=== PATIENT | male | born 1960 | race Caucasian/White ===

== ENCOUNTER 2018-06-30 08:35 | Day surgery (SDC) | payer BC ==
[~2018-06-30 08:35] MED LIST: LIDOCAINE 2% INJ 100 MG/5 ML SDV (FOR ANES.) As Ordered; PROPOFOL 500 MG/50 ML VIAL As Ordered; fentaNYL 100 MCG/2 ML INJECTION (J3010) As Ordered
[2018-06-30] MEDS ORDERED: NS 1,000 ML IV (09:30)
[2018-06-30] MEDS ORDERED: ACETAMINOPHEN 325 MG TAB As Ordered ×2 (10:28)
== END 2018-06-30 10:39 | disposition home or self-care (01) ==
LOC: M OPP 08:35
DX: Z12.11 Encounter for screening for malignant neoplasm of colon (principal); Z86.010 Personal history of colon polyps; D12.3 Benign neoplasm of transverse colon; K64.0 First degree hemorrhoids; K57.30 Diverticulosis of large intestine without perforation or abscess without bleeding; R12 Heartburn; K22.8 Other specified diseases of esophagus; E78.5 Hyperlipidemia, unspecified; K21.9 Gastro-esophageal reflux disease without esophagitis; G47.30 Sleep apnea, unspecified; R06.83 Snoring; R51 Headache; Z79.899 Other long term (current) drug therapy; Z87.891 Personal history of nicotine dependence; Z80.0 Family history of malignant neoplasm of digestive organs; Z80.1 Family history of malignant neoplasm of trachea, bronchus and lung
CPT/HCPCS: 45380

== ENCOUNTER → 2019-11-19 | Outpatient (CLI) | payer BC ==
[~2019-11-19] MED LIST changes: +ATOR1TAB21 PO; -LIDOCAINE 2% INJ 100 MG/5 ML SDV (FOR ANES.) As Ordered; +OMEP1CAP73 PO; -PROPOFOL 500 MG/50 ML VIAL As Ordered; -fentaNYL 100 MCG/2 ML INJECTION (J3010) As Ordered
--- NOTE | 2019-11-19 21:25 | REP ---
Clinical: Lung screening. History smoking. Comparison: None Technique: Axial low-dose noncontrast images from the thoracic inlet to the upper abdomen using lung screening technique. Findings: The lung garland are well-aerated. No consolidation, significant nodule or mass lesion is appreciated. No pleural effusion/reaction or pneumothorax. Tracheobronchial tree is patent. Mediastinum demonstrates mild atherosclerotic changes of the coronary arteries without cardiomegaly. Impression: Lung-RADS category I. No nodule or suspicious abnormality. Annual surveillance recommended. Electronically Signed by Didier Philip MD 11/19/2019 09:16 P
== END ==
LOC: M RAD 16:08
PROVIDERS: ATTEND Internal Medicine
DX: Z12.2 Encounter for screening for malignant neoplasm of respiratory organs (principal)

== ENCOUNTER 2020-02-03 16:20 | Inpatient (IN) | payer BC ==
[~2020-02-03] VITALS: Ht 172.7 cm; Wt 102.5 kg
[2020-02-03 17:05] LABS: BASO % 0.4 % (0.0-1.0); EOS # 0.1 10^3/uL (0.0-0.5); EOS % 0.6 % (0.0-3.0); HEMATOCRIT 45.5 % (42.0-52.0); HEMOGLOBIN 14.4 g/dl (13.5-17.5); LYMPH # 4.1 10^3/uL (1.5-5.0); LYMPH % 40.7 % (24.0-44.0); MEAN CORPUSCULAR HGB CONC 31.6 g/dl (32.0-36.5); MEAN CORPUSCULAR VOLUME 69.5 fl (80.0-96.0); MONO # 0.6 10^3/uL (0.0-0.8); NEUTROPHILS # 5.3 10^3/uL (1.5-8.5); PLATELET COUNT, AUTOMATED 229 10^3/uL (150-450); RED BLOOD COUNT 6.55 10^6/uL (4.30-6.10); WHITE BLOOD COUNT 10.2 10^3/uL (4.0-10.0)
[2020-02-03 17:19] LABS: INR 1.13; PROTHROMBIN TIME 14.2 SECONDS (11.8-14.0)
[2020-02-03 17:20] LABS: PARTIAL THROMBOPLASTIN TIME 25.3 SECONDS (25.0-38.4)
--- NOTE | 2020-02-03 17:27 | REP ---
TWO-VIEW CHEST: REASON FOR EXAM: Chest pain. COMPARISON: No priors. FINDINGS: The superior mediastinal structures are midline. The cardiac silhouette is unremarkable in size, shape, and position. The diaphragmatic surfaces of the lungs are regular, and the costophrenic angles are clear. The pulmonary garland are clear. The imaged osseous structures are intact. IMPRESSION: There is no acute cardiopulmonary disease. Electronically Signed by Morales Floyd DO 02/04/2020 10:50 A
[2020-02-03 17:39] LABS: ALBUMIN 4.3 GM/DL (3.2-5.2); ALT/SGPT 53 U/L (12-78); BILIRUBIN,DIRECT 0.1 MG/DL (0.0-0.2); BILIRUBIN,TOTAL 0.5 MG/DL (0.2-1.0); BLOOD UREA NITROGEN 18 MG/DL (7-18); CALCIUM LEVEL 9.4 MG/DL (8.8-10.2); CARBON DIOXIDE LEVEL 30 MEQ/L (21-32); CHLORIDE LEVEL 103 MEQ/L (98-107); CK-MB VALUE MASS 2.9 NG/ML (<3.6); CPK CREATINE PHOSPHOKINASE 265 U/L (39-308); FREE T4 1.05 NG/DL (0.76-1.46); GLOMERULAR FILTRATION RATE > 60.0 (>49); GLUCOSE, FASTING 81 MG/DL (70-100); MAGNESIUM LEVEL 2.2 MG/DL (1.8-2.4); MB/CK RELATIVE INDEX 1.09 (< OR =4); NT-PRO BNP 72 PG/ML (<125); PHOSPHORUS LEVEL 3.1 MG/DL (2.5-4.9); POTASSIUM SERUM 4.2 MEQ/L (3.5-5.1); SODIUM LEVEL 138 MEQ/L (136-145); TOTAL PROTEIN 7.6 GM/DL (6.4-8.2); TROPONIN I < 0.02 NG/ML (< 0.10)
[2020-02-03] MEDS ORDERED: NS 1,000 ML IV SCH (20:15)
--- NOTE | 2020-02-03 20:15 | HPEPDOC ---
[facility] Medical History & Physical Date of Admission Feb 03, 2020 Date of Service: Feb 03, 2020 Primary Care Physician: Jr Oleary Collins Attending Physician: Zaina Mars MD History and Physical CHIEF COMPLAINT: Fluttering in chest HISTORY OF PRESENT ILLNESS: Patient is a 60-year-old male with past medical history of hyperlipidemia and acid reflux presented to [facility] emergency room from his primary care provider's office for fluttering in his chest, lightheadedness and nearly passing out earlier today. As per the patient he has been having symptoms for the past 2 days. Symptoms include lightheadedness, dizziness, weakness, blurry vision associated with episodes of fluttering in his left chest. So has increased weakness with these episodes. He says over the past 2 days the episodes have been occurring 5-10 times a day. 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 Normally he has to rest for several minutes when this happens in order for him to start seeing well again. He states these episodes come and go, our localized to the left chest, he denies any radiation of the neck or down the arm. He denies any numbness, tingling, chest pain, shortness of breath, coughing, na usea, vomiting. He has no prior cardiac history. Today he went to his primary care provider's office for routine checkup and an EKG was done. There were multiple PVCs seen on ECG. It was recommended by his primary care doctor to be sent to the ER for further evaluation. In the emergency room EKG showed to be normal sinus. Vital signs were stable outside of blood pressure which remained elevated. Blood pressure was as high as 190s over 100. He has no prior history of hypertension. This high blood pressure was taken after his encounter with myself, so perhaps white coat syndrome or increased anxiety due to having to be admitted. He was connected to the telemetry which showed occasional PVCs. Tests were negative for acute findings, troponin was negative. Case was discussed with Dr. Cruz, cardiology suggested admission for observation to closely observe and monitor for any abnormal cardia c events on telemetry for the next 72 hours, echocardiogram. The patient was admitted for presyncopal episode, palpitations. REVIEW OF SYSTEMS: CONSTITUTIONAL: Denies unexplained weight gain or weight loss, loss of appetite, fever, night sweats EYES: Denies eye drainage, eye pain, visual changes, dry/irritated eye EARS, NOSE, MOUTH, THROAT: Denies difficulty hearing, ringing in ears, mouth sores, loose teeth, sore throat, facial numbness or pain NECK: Denies swollen glands CARDIOVASCULAR: Denies chest pains, swelling of feet or legs, pain in legs with walking RESPIRATORY: Denies shortness of breath, night sweats, wheezing, sputum production, oxygen at home, coughing up blood, cough lasting > 1 month GASTROINTESTINAL: Denies abdominal pain, constipation, bloody stool, diarrhea, heartburn, nausea, vomiting GENITOURINARY: Denies painful urination, bloody urine, frequent urination, urge ncy, leaking urine, impotence MUSCULOSKELETAL: Denies joint pain, muscle pain, leg swelling INTEGUMENTARY: Denies rash, itching, new skin lesion, change in existing skin lesion, hair loss or increase, breast changes. NEUROLOGICAL: Denies headaches, numbness or tingling PSYCHIATRIC: Denies depression, anxiety, recurrent bad thoughts, mood swings, hallucinations PAST MEDICAL HISTORY: 1. HLD 2. GERD PAST SURGICAL HISTORY: 1.Vasectomy FAMILY HISTORY: Father: Stomach cancer, hypertension. in his 70s Mother: Lung cancer. at 64 years old Siblings: Brotherhypertension. Alive SOCIAL HISTORY: Patient is a prior smoker of 1 pack per day. Quit 20 years ago and smoked for 20 years. He drinks alcohol socially. His primary care provider is Dr. Oleary. He is a full code. ALLERGIES: Please see below. HOME MEDICATIONS: Please see below. PHYSICAL EXAMINATION: CONSTITUTIONAL: No acute distress, resting comfortably, AAO x 3 EYES: PERRLA, EOM intact HENT, MOUTH: Normocephalic, atraumatic, moist mucous membranes, NECK: SUPPLE, no JVD, no lymphadenopathy, no carotid bruit CV: Regular rate and rhythm, S1S2 normal, no murmurs/rubs/gallops RESPIRATORY: Clear to auscultation bilaterally, no rales/rhonchi/wheezes GI: BS positive in 4 quadrants, soft, nontender, nondistended, no rebound or guarding, no organomegaly : Deferred MUSCULOSKELETAL: Normal ROM. No cyanosis, clubbing, swelling, joint deformity, extremity edema INTEGUMENTARY: Intact, no rashes, no lesions, no erythema NEUROLOGIC: Cranial Nerves II-XII are intact, no focal deficits PSYCHIATRIC: Mood and affect are normal LABORATORY DATA: Please see below IMAGING: ECG: NSR CXR: No acute cardiopulmonary abnormalities ASSESSMENT: Patient is a 60-year-old male admitted for presyncopal episode, ca rdiac arrhythmia. PLAN: 1. Presyncopal episode. Cannot r/o 2/2 to cardiac arrhythmia vs hypertension. Continue with telemetry, echocardiogram, carotid US, daily ECG. Case was discussed with Dr. Cruz in the ER and he can be officially consulted it if needed. 2. Palpitations. Symptomatic when present. TSH wnl, f/u iron studies, telemetry overnight. ECG in the AM. Started on NS at 80 cc/hr. 3. HTN. No prior history. Elevated in ER and as high as 190's/100. Started on low dose ACEi, can increase if needed. 4. Hypochromic microcytic anemia. R/o iron deficiency with elevated RDW, low MCV. f/u ferritin, TIBC, iron studies. 5. HLD. C/w statin. 6. GERD. PPI. 7. DVT px. Enoxaparin SC daily. DISPOSITION: Admitted under observation stay, plan is discharge home when work up complete. Vital Signs Vital Signs Date Time Temp Pulse Resp B/P (MAP) Pulse Ox O2 Delivery O2 Flow Rate FiO2 02/03/20 19:00 193/114 (140) 02/03/20 18:57 65 98 02/03/20 18:42 16 02/03/20 16:20 98.4 Room Air Laboratory Data Labs 24H Laboratory Tests 2 02/03/20 16:50: Immature Granulocyte % (Auto) 0.3, Neutrophils (%) (Auto) 52.0, Lymphocytes (%) (Auto) 40.7, Monocytes (%) (Auto) 6.0H, Eosinophils (%) (Auto) 0.6, Basophils (%) (Auto) 0.4, Neutrophils # (Auto) 5.3, Lymphocytes # (Auto) 4.1, Monocytes # (Auto) 0.6, Eosinophils # (Auto) 0.1, Basophils # (Auto) 0.0, Nucleated Red Blood Cells % (auto) 0.0, Prothrombin Time 14.2H, Prothromb Time International Ratio 1.13, Activated Partial Thromboplast Time 25.3, Anion Gap 5L, Glomerular Filtration Rate > 60.0, Calcium Level 9.4, Phosphorus Level 3.1, Magnesium Level 2.2, Total Bilirubin 0.5, Direct Bilirubin 0.1, Aspartate Amino Transf (AST/SGOT) 37, Alanine Aminotransferase (ALT/SGPT) 53, Alkaline Phosphatase 71, Total Creatine Kinase 265, Creatine Kinase MB 2.9, Creatine Kinase MB Relative Index 1.09, Troponin I < 0.02, QY-Uhh-V-Type Natriuretic Peptide 72, Total Protein 7.6, Albumin 4.3, Albumin/Globulin Ratio 1.30, Thyroid Stimulating Hormone (TSH) 2.050, Free Thyroxine 1.05 CBC/BMP Laboratory Tests 02/03/20 16:50 Home Medications Scheduled Atorvastatin Calcium (Atorvastatin Calcium) 20 Mg Tab, 20 MG PO DAILY Omeprazole (Omeprazole) 20 Mg Cap, 20 MG PO DAILY Allergies Coded Allergies: No Known Allergies (Unverified , 06/23/18) A-FIB/CHADSVASC A-FIB History Current/History of A-Fib/PAF?: No Current PO Anticoag Therapy: No Age/Risk Factor Scoring CHADSVASC: CHADSVASC Response (Comments) Value Age Risk Factor Age < 65 years old 0 Gender Risk Factor Male 0 Hx of CHF No 0 Hx of HTN No 0 Hx of Stroke/TIA/or VTE No 0 Hx of Diabetes No 0 Hx of Vascular Disease No 0 Total 0 Treatment Treatment ordered: Other (enoxaparin) Other anticoagulant ordered: enoxaparin Zaina Mars MD Feb 03, 2020 20:15
[2020-02-03 21:27] LABS: TROPONIN I < 0.02 NG/ML (< 0.10)
[2020-02-03 21:45] VITALS: BP 115/71
[2020-02-03 22:00] VITALS: BP 151/93
[2020-02-03 22:39] LABS: MAGNESIUM LEVEL 1.9 MG/DL (1.8-2.4)
--- NOTE | 2020-02-04 00:42 | REPVR ---
PROCEDURE INFORMATION: Exam: US Duplex Bilateral Extracranial Arteries Exam date and time: 02/04/2020 12:28 AM Age: 60 years old Clinical indication: Alteration of consciousness; Syncope and collapse; Additional info: Presyncope TECHNIQUE: Imaging protocol: Real-time Duplex ultrasound scan of the bilateral carotid and vertebral arteries combining zamora scale, color Doppler and spectral waveform analysis. Bilateral exam. COMPARISON: No relevant prior studies available. FINDINGS: Right common carotid artery: Unremarkable. No occlusion or stenosis. Waveforms are normal. Right internal carotid artery: Unremarkable. No occlusion or stenosis. Waveforms are normal. Right ICA/CCA ratio: Within normal limits. Right external carotid artery: No stenosis in the origin. Right vertebral artery: Unremarkable. Antegrade flow. Left common carotid artery: Unremarkable. No occlusion or stenosis. Waveforms are normal. Left internal carotid artery: Unremarkable. No occlusion or stenosis. Waveforms are normal. Left ICA/CCA ratio: Within normal limits. Left external carotid artery: No stenosis in the origin. Left vertebral artery: Unremarkable. Antegrade flow. IMPRESSION: No carotid arterial stenosis. REFERENCES: SRU CRITERIA. The degree of internal carotid artery stenosis is based on criteria defined by the Society of Radiologists in Ultrasound (SRU). Normal is no stenosis. Mild is less than 50% stenosis. Moderate is 50-69% stenosis. Severe is greater than 69% stenosis to near occlusion. Near occlusion is a markedly narrowed lumen. Total occlusion is no detectable patent lumen. Electronically signed by: Fred Davis On 02/04/2020 00:41:42 AM
--- NOTE | 2020-02-04 01:03 | ECGEPIP ---
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
--- NOTE | 2020-02-04 01:13 | ECGEPIP ---
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
[2020-02-04 06:00] VITALS: BP 136/76
[2020-02-04 07:30] LABS: HEMATOCRIT 42.9 % (42.0-52.0); HEMOGLOBIN 13.8 g/dl (13.5-17.5); MEAN CORPUSCULAR HEMOGLOBIN 22.3 pg (27.0-33.0); MEAN CORPUSCULAR HGB CONC 32.2 g/dl (32.0-36.5); MEAN CORPUSCULAR VOLUME 69.2 fl (80.0-96.0); PLATELET COUNT, AUTOMATED 215 10^3/uL (150-450); WHITE BLOOD COUNT 7.5 10^3/uL (4.0-10.0)
[2020-02-04 07:52] LABS: HEMOGLOBIN A1c 6.1 %
[2020-02-04 08:01] LABS: ALBUMIN 3.8 GM/DL (3.2-5.2); ALT/SGPT 47 U/L (12-78); BILIRUBIN,TOTAL 0.8 MG/DL (0.2-1.0); BLOOD UREA NITROGEN 17 MG/DL (7-18); CALCIUM LEVEL 9.2 MG/DL (8.8-10.2); CARBON DIOXIDE LEVEL 28 MEQ/L (21-32); CHLORIDE LEVEL 105 MEQ/L (98-107); CHOLESTEROL LEVEL 147 MG/DL (<200); CHOLESTEROL RISK RATIO 3.769 (<5); CREATININE FOR GFR 0.89 MG/DL (0.70-1.30); FERRITIN 284 NG/ML (26-388); GLOMERULAR FILTRATION RATE > 60.0 (>49); GLUCOSE, FASTING 95 MG/DL (70-100); HDL CHOLESTEROL 39 MG/DL (>40); IRON (FE) 78 UG/DL (65-175); LDL CHOLESTEROL 85 MG/DL (<100); NON-HDL-C 108 MG/DL; PERCENT SATURATION 29.5 % (19.7-50.0); POTASSIUM SERUM 4.1 MEQ/L (3.5-5.1); SODIUM LEVEL 139 MEQ/L (136-145); TOTAL IRON BINDING CAPACITY 264 UG/DL (250-450); TOTAL PROTEIN 6.6 GM/DL (6.4-8.2); TRIGLYCERIDES LEVEL 113 MG/DL (<150); TROPONIN I < 0.02 NG/ML (< 0.10)
[2020-02-04] MEDS: ENOXAPARIN 40MG/0.4ML SYRINGE (J1650 PER 10MG) SC SCH ×2 (09:00→12:12)
[2020-02-04] MEDS ORDERED: lisinopriL 5 MG TAB PO SCH (09:00)
[2020-02-04] MEDS: OMEPRAZOLE 20 MG CAP PO SCH (09:54)
[2020-02-04] MEDS: ATORVASTATIN 20 MG TAB PO SCH (09:55)
[2020-02-04 14:00] VITALS: BP 132/90
--- NOTE | 2020-02-04 17:17 | IPNPDOC ---
Date Seen The patient was seen on 02/04/20. Progress Note SUBJECTIVE: Bigeminy and trigeminy PVCs, isolated PVCs seen on telemetry. One episode of trigeminy today where patient felt fluttering, no other symptoms. Echo today is pending dictation but spoke with Dr. Cruz. Incidental AAA 5.4 cm found, CTA chest ordered. Scheduled ACEi TID with holding parameters. Denies chest pain, n/v/d, shortness of breath. OBJECTIVE: VITAL SIGNS: Please see below PHYSICAL EXAMINATION: CONSTITUTIONAL: No acute distress, resting comfortably, AAO x 3 EYES: PERRLA, EOM intact HENT, MOUTH: Normocephalic, atraumatic, moist mucous membranes, NECK: SUPPLE, no JVD, no lymphadenopathy, no carotid bruit CV: Regular rate and rhythm, S1S2 normal, no murmurs/rubs/gallops RESPIRATORY: Clear to auscultation bilaterally, no rales/rhonchi/wheezes GI: BS positive in 4 quadrants, soft, nontender, nondistended, no rebound or guarding, no organomegaly : Deferred MUSCULOSKELETAL: Normal ROM. No cyanosis, clubbing, swelling, joint deformity, extremity edema INTEGUMENTARY: Intact, no rashes, no lesions, no erythema NEUROLOGIC: Cranial Nerves II-XII are intact, no focal deficits PSYCHIATRIC: Mood and affect are normal LABORATORY DATA: Please see below IMAGING: Echo: pending official report US carotid: <50% b/l stenosis ASSESSMENT: Patient is a 60-year-old male admitted for presyncopal episode, cardiac arrhythmias. PLAN: 1. Presyncopal episode. No new events overnight. Encouraging walking 10 mins daily with tele to see if brings about events. Bigeminy, trigeminy, nonsustained VT throughout the evening but asymptomatic. BP high at 190's on admission, currently not controlled. Echo pending, US carotid. Continue with telemetry, Dr. Cruz (cardiology) following closely and would like to see in office for stress test, further evaluation after discharge. 2. Palpitations. TSH wnl, f/u iron studies, telemetry overnight. ECG unchanged this AM. 3. Ascending abdominal aortic aneurysm (AAA). 5.4 cm found on echo per cardiology, official report pending and result called to me. RF: HTN, obesity, smoker. F/u CTangio abdomen. Will need vascular referral as o/p. 4. HTN. LVH on echo per cards. Started on lisinopril 5 mg PO TID with holding pa ayanna. See how much he required in 24 hours. 5. Hypochromic microcytic anemia. Iron wnl. May benefit from daily iron anyway, as iron level is low normal. 6. HLD. C/w statin. 7. GERD. PPI. 8. DVT px. Enoxaparin SC daily. DISPOSITION: Changing to inpatient as patient will require additional workup here per cards and will likely need to be observed further on tele as well. Plan is discharge home when work up complete. VS, I&O, 24H, Fishbone Vital Signs/I&O Vital Signs Date Time Temp Pulse Resp B/P (MAP) Pulse Ox O2 Delivery O2 Flow Rate FiO2 02/04/20 14:00 97.5 67 17 132/90 (104) 96 Room Air I&O- Last 24 Hours up to 6 AM 02/04/20 06:00 Intake Total 0 ml Balance 0 ml Laboratory Data 24H LABS Laboratory Tests 2 02/03/20 20:52: Magnesium Level 1.9, Troponin I < 0.02 02/04/20 06:42: Troponin I < 0.02, Nucleated Red Blood Cells % (auto) 0.0, Anion Gap 6L, Glomerular Filtration Rate > 60.0, Estimated Mean Plasma Glucose 128H, Hemoglobin A1c 6.1, Calcium Level 9.2, Iron Level 78, Total Iron Binding Cap acity 264, Transferrin % Saturation 29.5, Ferritin 284, Total Bilirubin 0.8#, Aspartate Amino Transf (AST/SGOT) 22, Alanine Aminotransferase (ALT/SGPT) 47, Alkaline Phosphatase 61, Total Protein 6.6, Albumin 3.8, Albumin/Globulin Ratio 1.36, Triglycerides Level 113, Total Cholesterol 147, LDL Cholesterol 85, Non- HDL Cholesterol (LDL + VLDL) 108, Total HDL Cholesterol 39L, Cholesterol/HDL Ratio 3.769 CBC/BMP Laboratory Tests 02/04/20 06:42 Current Medications Current Medications Medications (Trade) Dose Ordered Sig/Ruddy Route PRN Reason Start Time Stop Time Status Last Admin Dose Admin Atorvastatin Calcium (Lipitor) 20 mg DAILY PO 02/04/20 09:00 02/04/20 09:55 Enoxaparin Sodium (Lovenox) 40 mg DAILY SC 02/04/20 09:00 Home Med (Med Rec Complete!) ASDIRECTED XX 02/03/20 17:15 02/03/20 17:14 DC Lisinopril (Prinivil) 5 mg DAILY PO 02/04/20 09:00 Omeprazole (PriLOSEC) 20 mg DAILY PO 02/04/20 09:00 02/04/20 09:54 Sodium Chloride 1,000 ml @ 80 mls/hr [id number] IV 02/03/20 20:15 Cancel Allergies Coded Allergies: No Known Allergies (Unverified , 06/23/18) Zaina Mars MD Feb 04, 2020 17:17
--- NOTE | 2020-02-04 17:22 | ECHO ---
DATE OF PROCEDURE: 02/04/2020 Date of : 1960 Age: 60 Gender: Male Height: 68 inches Weight: 227 pounds Body surface area: 2.16 meters squared Inpatient: [address] [place] [address], room 4225 REFERRING PHYSICIAN: Dr. Mars INDICATION: Abnormal EKG. Frequent premature ventricular contractions (PVCs) MEASUREMENTS: 2D Measurements: RV: 3.6 cm LV: 4.8 cm Septum: 1.2 cm Posterior wall: 1.2 cm Aortic root: 4.2 cm Proximal ascending aorta: 5.4 cm Aortic arch: 2.8 cm Proximal descending aorta: 2.8 cm LA: 4.1 cm LVEF: 65%. Doppler Measurements: AV: 2.76 meters per second LVOT: 1.31 meters per second Mean AV systolic gradient: 15 mmHg Dimensionless index: 0.52 MV-E: 78, A: 89, EA ratio: 0.9 Early mitral deceleration time: 208 milliseconds E prime medial: 5.1, A prime medial: 10, E prime lateral: 6.4 Average E/E prime ratio: 13.6/PCWP: 18.7 mmHg. RVSP: 37 mmHg PV: 0.96 meters per second Pulmonary artery acceleration time: 100 milliseconds IVC: 1.8 cm COMMENTS: Normal sinus rhythm at 66 beats per minute (bpm) without ectopic activity. Technically challenging study in light of the patient's body habitus but diagnostically useful information was still obtained. M-mode and two-dimensional echocardiography was performed with pulsed, continuous wave, color flow and tissue Doppler studies. Borderline concentric left ventricle hypertrophy with normal wall motion. Mildly dilated left atrium with grade 1 left ventricular (LV) diastolic dysfunction and estimated mean left atrial pressure upper limits of normal to mildly increased. Normal right heart chamber sizes and motion with Doppler evidence of mild pulmonary hypertension. Normal inferior vena cava (IVC) size and collapse against an elevated central venous pressure. At least mildly dilated aortic root, moderately prominently dilated proximal ascending aorta but normal aortic arch and proximal descending aortic diameters. No evidence of aortic coarctation. Moderate aortic valvular sclerosis without stenosis but mild insufficiency. Normal appearing mitral valve without functional abnormality. Normal appearing tricuspid valve with trace to very mild insufficiency. No apparent intracardiac mass or pericardial effusion.
[2020-02-04] MEDS ORDERED: ISOVUE-370 76% 100ML VIAL As Ordered ONE (17:27)
[2020-02-04] MEDS: lisinopriL 5 MG TAB PO SCH ×2 (17:33→20:37)
--- NOTE | 2020-02-04 18:59 | REPVR ---
PROCEDURE INFORMATION: Exam: CT Angiography Chest With Contrast Exam date and time: 02/04/2020 6:13 PM Age: 60 years old Clinical indication: Cardiovascular condition or disease; Aortic aneurysm; Without rupture; Thoracic; Additional info: Ascending aaa, further evaluate TECHNIQUE: Imaging protocol: Computed tomographic angiography of the chest with intravenous contrast. 3D rendering: MIP and/or 3D reconstructed images were created by the technologist. Radiation optimization: All CT scans at this facility use at least one of these dose optimization techniques: automated exposure control; mA and/or kV adjustment per patient size (includes targeted exams where dose is matched to clinical indication); or iterative reconstruction. Contrast material: ISOVUE 370; Contrast volume: 100 ml; Contrast route: IV; COMPARISON: CR Chest, 2 view PA, Lat 02/03/2020 4:40 PM FINDINGS: Pulmonary arteries: Normal. No pulmonary emboli. Aorta: Unremarkable. No aortic aneurysm. No aortic dissection. Lungs: Unremarkable. No consolidation. No masses. Pleural space: Unremarkable. No pneumothorax. No pleural effusion. Heart: Unremarkable. No cardiomegaly. No pericardial effusion. Gallbladder and bile ducts: Ascending aortic aneurysm measuring 5.2 cm Lymph nodes: Unremarkable. No enlarged lymph nodes. Bones/joints: Unremarkable. No acute fracture. Soft tissues: Unremarkable. Cholelithiasis. IMPRESSION: Ascending aortic aneurysm measuring 5.2 cm. Electronically signed by: Aayush Nagy On 02/04/2020 18:59:31 PM
--- NOTE | 2020-02-04 19:04 | REPVR ---
PROCEDURE INFORMATION: Exam: CT Angiography Abdomen and Pelvis With Contrast Exam date and time: 02/04/2020 6:13 PM Age: 60 years old Clinical indication: Condition or disease; Arterial aneurysm; Without rupture; Thoracoabdominal; Additional info: Ascending aortic aneurysm on echo, 5.4 cm, further assess TECHNIQUE: Imaging protocol: Computed tomographic angiography of the abdomen and pelvis with intravenous contrast material. 3D rendering: MIP and/or 3D reconstructed images were created by the technologist. Radiation optimization: All CT scans at this facility use at least one of these dose optimization techniques: automated exposure control; mA and/or kV adjustment per patient size (includes targeted exams where dose is matched to clinical indication); or iterative reconstruction. Contrast material: ISOVUE 370; Contrast volume: 100 ml; Contrast route: IV; COMPARISON: No relevant prior studies available. FINDINGS: Aorta: No aortic aneurysm. No aortic dissection. Celiac trunk and mesenteric arteries: No occlusion or significant stenosis. Renal arteries: No occlusion or significant stenosis. Right iliac arteries: No occlusion or significant stenosis. Left iliac arteries: No occlusion or significant stenosis. Liver: No mass. Gallbladder and bile ducts: Unremarkable. No calcified stones. No ductal dilation. Pancreas: Unremarkable. No mass. No ductal dilation. Spleen: Unremarkable. No splenomegaly. Adrenals: Unremarkable. No mass. Kidneys and ureters: Bilateral renal cysts, the largest measures 6 cm at the lower pole of left kidney and 2.4 cm at the lower pole of right kidney. Stomach and bowel: Diverticulosis of the sigmoid colon. Appendix: No evidence of appendicitis. Intraperitoneal space: Unremarkable. No free air. No significant fluid collection. Lymph nodes: Unremarkable. No enlarged lymph nodes. Bladder: Unremarkable. No mass. Reproductive: Unremarkable as visualized. Bones/joints: No acute fracture. No dislocation. Soft tissues: Unremarkable. IMPRESSION: No acute abdominal or pelvic abnormality. Electronically signed by: Aayush Nagy On 02/04/2020 19:03:33 PM
[2020-02-04 22:00] VITALS: BP 129/77
[2020-02-05 05:55] VITALS: BP 123/71
[2020-02-05 06:26] LABS: HEMATOCRIT 43.2 % (42.0-52.0); HEMOGLOBIN 13.5 g/dl (13.5-17.5); MEAN CORPUSCULAR HEMOGLOBIN 21.6 pg (27.0-33.0); MEAN CORPUSCULAR HGB CONC 31.3 g/dl (32.0-36.5); MEAN CORPUSCULAR VOLUME 69.1 fl (80.0-96.0); PLATELET COUNT, AUTOMATED 221 10^3/uL (150-450); RED BLOOD COUNT 6.25 10^6/uL (4.30-6.10); WHITE BLOOD COUNT 7.9 10^3/uL (4.0-10.0)
[2020-02-05 06:48] LABS: ALBUMIN 3.7 GM/DL (3.2-5.2); ALT/SGPT 42 U/L (12-78); BILIRUBIN,TOTAL 0.6 MG/DL (0.2-1.0); BLOOD UREA NITROGEN 15 MG/DL (7-18); CALCIUM LEVEL 8.6 MG/DL (8.8-10.2); CARBON DIOXIDE LEVEL 27 MEQ/L (21-32); CHLORIDE LEVEL 106 MEQ/L (98-107); CREATININE FOR GFR 0.86 MG/DL (0.70-1.30); GLOMERULAR FILTRATION RATE > 60.0 (>49); GLUCOSE, FASTING 98 MG/DL (70-100); POTASSIUM SERUM 3.9 MEQ/L (3.5-5.1); SODIUM LEVEL 138 MEQ/L (136-145); TOTAL PROTEIN 6.9 GM/DL (6.4-8.2)
[2020-02-05] MEDS: ENOXAPARIN 40MG/0.4ML SYRINGE (J1650 PER 10MG) SC SCH (09:00)
[2020-02-05] MEDS: lisinopriL 5 MG TAB PO SCH ×2 (09:00→16:00)
[2020-02-05 09:10] VITALS: BP 115/72
[2020-02-05] MEDS: ATORVASTATIN 20 MG TAB PO SCH (09:22)
[2020-02-05] MEDS: OMEPRAZOLE 20 MG CAP PO SCH (09:22)
--- NOTE | 2020-02-05 10:08 | ECGEPIP ---
[facility] Test Date: 2020-02-04 Pat Name: LYDIA CHOWDARY Department: Room: [place] [address] Gender: Male [employer]: RYNE : 1960 Requested By: Zaina Stoner Order Number: [id number] Reading MD: Fred Calero Measurements Intervals [place] Rate: 55 P: 20 GA: 192 QRS: 15 QRSD: 100 T: 22 QT: 420 QTc: 403 Interpretive Statements SINUS BRADYCARDIA EARLY REPOLARIZATION Electronically Signed on 02-05-2020 10:07:47 EDT by Fred Calero
[2020-02-05 10:32] LABS: MAGNESIUM LEVEL 2.2 MG/DL (1.8-2.4)
[2020-02-05 14:00] VITALS: BP 112/63
--- NOTE | 2020-02-05 18:13 | IPNPDOC ---
Date Seen The patient was seen on 02/05/20. Progress Note SUBJECTIVE: Several episodes of palpitations today; however, at 13:0, 12 seconds 4 beats bending over to tying shoes and felt lightheaded. Was NSR. Patient states he has noticed these occur when he is drinking caffeinated beverages. Caffeine stopped. He admits to drinking more of caffeine over the past several weeks so this may be contributing factor to his presyncopal episodes/palpitations. Nocturnal oximetry test did not show apneic events on cpap machine, >90% throughout evening on home pressures. CT angio of abd/pelvis and chest showed only ascending aortic aneurysm 5.[address] Cruz this coming saturday. Likely discharge in AM if no further episodes and workup neg. Denies chest pain, n/v/d, shortness of breath. OBJECTIVE: VITAL SIGNS: Please see below PHYSICAL EXAMINATION: CONSTITUTIONAL: No acute distress, resting comfortably, AAO x 3 EYES: PERRLA, EOM intact HENT, MOUTH: Normocephalic, atraumatic, moist mucous membranes, NECK: SUPPLE, no JVD, no lymphadenopathy, no carotid bruit CV: Regular rate and rhythm, S1S2 normal, no murmurs/rubs/gallops RESPIRATORY: Clear to auscultation bilaterally, no rales/rhonchi/wheezes GI: BS positive in 4 quadrants, soft, nontender, nondistended, no rebound or guarding, no organomegaly : Deferred MUSCULOSKELETAL: Normal ROM. No cyanosis, clubbing, swelling, joint deformity, extremity edema INTEGUMENTARY: Intact, no rashes, no lesions, no erythema NEUROLOGIC: Cranial Nerves II-XII are intact, no focal deficits PSYCHIATRIC: Mood and affect are normal LABORATORY DATA: Please see below IMAGING: Echocardiogram: EF 65% Normal sinus rhythm at 66 beats per minute (bpm) without ectopic activity. Borderline concentric left ventricle hypertrophy with normal wall motion. Mildly dilated left atrium with grade 1 left ventricular (LV) diastolic dysfunction and estimated mean left atrial pressure upper limits of normal to mildly increased. Normal right heart chamber sizes and motion with Doppler evidence of mild pulmonary hypertension. Normal inferior vena cava (IVC) size and collapse against an elevated central venous pressure. At least mildly dilated aortic root, moderately prominently dilated proximal ascending aorta but normal aortic arch and proximal descending aortic diameters. No evidence of aortic coarctation Moderate aortic valvular sclerosis without stenosis but mild insufficiency. Normal appearing mitral valve without functional abnormality. Normal appearing tricuspid valve with trace to very mild insufficiency. No apparent intracardiac mass or pericardial effusion. CT angio abd/pelvis: Ascending aortic aneurysm measuring 5.[address] angio chest: No acute abdominal or pelvic abnormality. ASSESSMENT: Patient is a 60-year-old male admitted for presyncopal episode, cardiac arrhythmias. PLAN: 1. Presyncopal episode likely secondary to cardiac arrythmias vs. uncontrolled BP. Episodic today with quadrigeminy, became lightheaded. Was drinking coffee during one episode, soda for another. Outside hospital happens often with be nding over and standing up (pressure changes) . Orthostats here neg. No new events overnight. Encouraging walking 10 mins daily with tele to see if brings about events. Bigeminy, trigeminy throughout the day but asymptomatic. BP better controlled. Tomorrow completes 72 hr observation. Continue with telemetry, Dr. Cruz (cardiology) following closely and would like to see in office 02/08/20, further evaluation after discharge. No more caffeine. 2. Palpitations. TSH wnl. ECG unchanged this AM. Please see above. 3. Ascending abdominal aortic aneurysm (AAA). 5. [address] angio above. RF: HTN, obesity, smoker. Will need vascular referral as o/p, good BP control. 4. HTN. LVH on echo per cards. Keep lisinopril 5 mg Po daily. 5. Hypochromic microcytic anemia. Iron wnl. May benefit from daily iron anyway, as iron level is low normal. consider testing for other causes. 6. HLD. C/w statin. 7. GERD. PPI. 8. DVT px. Enoxaparin SC daily. DISPOSITION: Plan is discharge home tomorrow if no acute events. F/u with PCP and cardiology (already scheduled). Will update Dr. Cruz on evaluation in AM. VS, I&O, 24H, Fishbone Vital Signs/I&O Vital Signs Date Time Temp Pulse Resp B/P (MAP) Pulse Ox O2 Delivery O2 Flow Rate FiO2 02/05/20 16:00 112/63 02/05/20 14:00 96.9 67 17 97 Room Air I&O- Last 24 Hours up to 6 AM 02/05/20 06:00 Intake Total 2020 ml Output Total 0 ml Balance 2020 ml Laboratory Data 24H LABS Laboratory Tests 2 02/05/20 05:56: Nucleated Red Blood Cells % (auto) 0.0, Anion Gap 5L, Glomerular Filtration Rate > 60.0, Calcium Level 8.6L, Magnesium Level 2.2, Total Bilirubin 0.6, Aspartate Amino Transf (AST/SGOT) 15, Alanine Aminotransferase (ALT/SGPT) 42, Alkaline Phosphatase 66, Total Protein 6.9, Albumin 3.7, Albumin/Globulin Ratio 1.16 02/05/20 15:50: Troponin I < 0.02 CBC/BMP Laboratory Tests 02/05/20 05:56 Current Medications Current Medications Medications (Trade) Dose Ordered Sig/Ruddy Route PRN Reason Start Time Stop Time Status Last Admin Dose Admin Atorvastatin Calcium (Lipitor) 20 mg DAILY PO 02/04/20 09:00 02/05/20 09:22 Enoxaparin Sodium (Lovenox) 40 mg DAILY SC 02/04/20 09:00 Home Med (Med Rec Complete!) ASDIRECTED XX 02/03/20 17:15 02/03/20 17:14 DC Lisinopril (Prinivil) 5 mg DAILY PO 02/04/20 09:00 02/04/20 17:07 DC Lisinopril (Prinivil) 5 mg TID PO 02/04/20 17:15 02/04/20 17:33 Omeprazole (PriLOSEC) 20 mg DAILY PO 02/04/20 09:00 02/05/20 09:22 Sodium Chloride 1,000 ml @ 80 mls/hr [id number] IV 02/03/20 20:15 Cancel Allergies Coded Allergies: No Known Allergies (Unverified , 06/23/18) Zaina Mars MD Feb 05, 2020 18:13
[2020-02-05 22:00] VITALS: BP 137/70
[2020-02-06 06:00] VITALS: BP 143/89
[2020-02-06 06:38] LABS: HEMATOCRIT 44.5 % (42.0-52.0); HEMOGLOBIN 14.1 g/dl (13.5-17.5); MEAN CORPUSCULAR HEMOGLOBIN 22.1 pg (27.0-33.0); MEAN CORPUSCULAR HGB CONC 31.7 g/dl (32.0-36.5); MEAN CORPUSCULAR VOLUME 69.9 fl (80.0-96.0); PLATELET COUNT, AUTOMATED 232 10^3/uL (150-450); RED BLOOD COUNT 6.37 10^6/uL (4.30-6.10); WHITE BLOOD COUNT 8.9 10^3/uL (4.0-10.0)
[2020-02-06 07:03] LABS: ALBUMIN 3.8 GM/DL (3.2-5.2); ALT/SGPT 45 U/L (12-78); BILIRUBIN,TOTAL 0.7 MG/DL (0.2-1.0); BLOOD UREA NITROGEN 19 MG/DL (7-18); CALCIUM LEVEL 9.1 MG/DL (8.8-10.2); CARBON DIOXIDE LEVEL 28 MEQ/L (21-32); CHLORIDE LEVEL 105 MEQ/L (98-107); CREATININE FOR GFR 0.86 MG/DL (0.70-1.30); GLOMERULAR FILTRATION RATE > 60.0 (>49); GLUCOSE, FASTING 95 MG/DL (70-100); POTASSIUM SERUM 4.4 MEQ/L (3.5-5.1); SODIUM LEVEL 138 MEQ/L (136-145); TOTAL PROTEIN 6.8 GM/DL (6.4-8.2)
[2020-02-06] MEDS ORDERED: LISI10TA4 PO (08:12)
[2020-02-06] MEDS: OMEPRAZOLE 20 MG CAP PO SCH (08:19)
[2020-02-06] MEDS: ATORVASTATIN 20 MG TAB PO SCH (08:20)
[2020-02-06] MEDS ORDERED: lisinopriL 5 MG TAB PO SCH (09:00)
[2020-02-06] MEDS: ENOXAPARIN 40MG/0.4ML SYRINGE (J1650 PER 10MG) SC SCH (09:00)
[2020-02-06 09:18] VITALS: BP 127/84
--- NOTE | 2020-02-06 11:20 | DS.PDOC ---
Discharge Summary General Date of Admission Feb 04, 2020 at 17:18 Date of Discharge 02/06/20 Primary Care Physician: Jr Oleary Collins Attending Physician: Zaina Mars MD Specialist/Consultants Involve: Navid Cruz Discharge Summary HISTORY OF PRESENT ILLNESS: Patient is a 60-year-old male with past medical history of hyperlipidemia and acid reflux presented to [facility] emergency room from his primary care provider's office for fluttering in his chest, lightheadedness and nearly passing out earlier today. As per the patient he has been having symptoms for the past 2 days. Symptoms include lightheadedness, dizziness, weakness, blurry vision associated with episodes of fluttering in his left chest. So has increased weakness with these episodes. He says over the past 2 days the episodes have been occurring 5-10 times a day. 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 Normally he has to rest for several minutes when this happens in order for him to start seeing well again. He states these episodes come and go, our localized to the left chest, he denies any radiation of the neck or down the arm. He denies any numbness, tingling, chest pain, shortness of breath, coughing, nausea, vomiting. He has no prior cardiac history. Today he went to his primary care provider's office for routine checkup and an EKG was done. There were multiple PVCs seen on ECG. It was recommended by his primary care doctor to be sent to the ER for further evaluation. In the emergency room EKG showed to be normal sinus. Vital signs were stable outside of blood pressure which remained elevated. Blood pressure was as high as 190s over 100. He has no prior history of hypertension. This high blood pressure was taken after his encounter with myself, so perhaps white coat syndrome or increased anxiety due to having to be admitted. He was connected to the telemetry which showed occasional PVCs. Tests were negative for acute findings, troponin was negative. Case was discussed with Dr. Cruz, cardiology suggested admission for observation to closely observe and monitor for any abnormal cardiac events on telemetry for the next 72 hours, echocardiogram. The patient was admitted for presyncopal episode, palpitations. HOSPITAL COURSE: Throughout his hospitalization the patient had episodes of palpitations. Echo showed LVH, preserved EF and incidental finding was a 5.4 cm ascending abdominal aortic aneurysm. CT angio of chest/abd/pelvis only confirmed this. On 02/05/20 patient experienced palpitations, on tele showed quadgeminy while bending over to tying shoes and felt lightheaded. Was NSR, trop neg. Patient states he has noticed these occur when he is drinking caffeinated beverages. Caffeine stopped. He admits to drinking more of caffeine over the past several weeks so this may be contributing factor to his presyncopal episodes/palpitations. He also notes more episodes during work when bending over, moving around a lot. Nocturnal oximetry test did not show apneic events on cpap machine, >90% throughout evening on home pressures. He was walked daily and also did walking himself with remote tele often without symptoms developing during those. I spoke with this patient in detail with Dr. Cruz, cardiology on admission and prior to discharge. Ischemic heart disease cannot be ruled out currently but will need stress test. Patient is scheduled to see Dr. Cruz this coming 02/08/20, has appt already made. He also needs referral to vascular surgery to monitor aortic aneurysm. Blood pressure was found to be elevated this stay and patient will be discharged with lisinopril 10 mg PO daily, which he has been tolerating well. He is advised to stay away from caffeinated beverages/substances and lifestyle changes were discussed (i.e. wt loss, exercise, better diet). At discharge on 02/06/20, patient denies chest pain, n/v/d, shortness of breath, palpitations, fevers or chills. REVIEW OF SYSTEMS: CONSTITUTIONAL: Denies unexplained weight gain or weight loss, loss of appetite, fever, night sweats EYES: Denies eye drainage, eye pain, visual changes, dry/irritated eye EARS, NOSE, MOUTH, THROAT: Denies difficulty hearing, ringing in ears, mouth sores, loose teeth, sore throat, facial numbness or pain NECK: Denies swollen glands CARDIOVASCULAR: Denies chest pains, swelling of feet or legs, pain in legs with walking RESPIRATORY: Denies shortness of breath, night sweats, wheezing, sputum production, oxygen at home, coughing up blood, cough lasting > 1 month GASTROINTESTINAL: Denies abdominal pain, constipation, bloody stool, diarrhea, heartburn, nausea, vomiting GENITOURINARY: Denies painful urination, bloody urine, frequent urination, urgency, leaking urine, impotence MUSCULOSKELETAL: Denies joint pain, muscle pain, leg swelling INTEGUMENTARY: Denies rash, itching, new skin lesion, change in existing skin lesion, hair loss or increase, breast changes. NEUROLOGICAL: Denies headaches, numbness or tingling PSYCHIATRIC: Denies depression, anxiety, recurrent bad thoughts, mood swings, hallucinations PAST MEDICAL HISTORY: 1. HLD 2. GERD 3. Obesity 4. Tobacco use history 5. CESAR uses CPAP nightly PAST SURGICAL HISTORY: 1.Vasectomy FAMILY HISTORY: Father: Stomach cancer, hypertension. in his 70s Mother: Lung cancer. at 64 years old Siblings: Brotherhypertension. Alive SOCIAL HISTORY: Patient is a prior smoker of 1 pack per day. Quit 20 years ago and smoked for 20 years. He drinks alcohol socially. His primary care provider is Dr. Oleary. He is a full code. ALLERGIES: Please see below. HOME MEDICATIONS: Please see below. PHYSICAL EXAMINATION: CONSTITUTIONAL: No acute distress, resting comfortably, AAO x 3 EYES: PERRLA, EOM intact HENT, MOUTH: Normocephalic, atraumatic, moist mucous membranes, NECK: SUPPLE, no JVD, no lymphadenopathy, no carotid bruit CV: Regular rate and rhythm, S1S2 normal, no murmurs/rubs/gallops RESPIRATORY: Clear to auscultation bilaterally, no rales/rhonchi/wheezes GI: BS positive in 4 quadrants, soft, nontender, nondistended, no rebound or guarding, no organomegaly : Deferred MUSCULOSKELETAL: Normal ROM. No cyanosis, clubbing, swelling, joint deformity, extremity edema INTEGUMENTARY: Intact, no rashes, no lesions, no erythema NEUROLOGIC: Cranial Nerves II-XII are intact, no focal deficits PSYCHIATRIC: Mood and affect are normal LABORATORY DATA: Please see below DISCHARGE MEDICATIONS: Please see below. IMAGING: US carotid: <50% stenosis b/l Echocardiogram: EF 65% Normal sinus rhythm at 66 beats per minute (bpm) without ectopic activity. Borderline concentric left ventricle hypertrophy with normal wall motion. Mildly dilated left atrium with grade 1 left ventricular (LV) diastolic dysfunction and estimated mean left atrial pressure upper limits of normal to mildly increased. Normal right heart chamber sizes and motion with Doppler evidence of mild pulmonary hypertension. Normal inferior vena cava (IVC) size and collapse against an elevated central venous pressure. At least mildly dilated aortic root, moderately prominently dilated proximal ascending aorta but normal aortic arch and proximal descending aortic diameters. No evidence of aortic coarctation Moderate aortic valvular sclerosis without stenosis but mild insufficiency. Normal appearing mitral valve without functional abnormality. Normal appearing tricuspid valve with trace to very mild insufficiency. No apparent intracardiac mass or pericardial effusion. CT angio abd/pelvis: Ascending aortic aneurysm measuring 5.[address] angio chest: No acute abdominal or pelvic abnormality. ECG: NSR CXR: No acute cardiopulmonary abnormalities ASSESSMENT: Patient is a 60-year-old male admitted for presyncopal episode, cardiac arrhythmias. PLAN: 1. Presyncopal episode likely secondary to cardiac arrythmias (PVCs, bigeminy, trigeminy, quadrigeminy) vs. uncontrolled BP. EF preserved, echo and US carotid above. Episodic during hospital stay with quadrigeminy, became lightheaded. Caffeine believed to be associated and he is instructed to stay away from on discharge. Was drinking coffee during one episode, soda for another. Outside hospital happens often with bending over and standing up (pressure changes) . BP better controlled. D/c with lisinopril and f/u with telemetry, Dr. Cruz (cardiology) in office 02/08/20, further evaluation after discharge. Advised against drinking coffee. 2. Palpitations. Substance (caffeine) related here; however, cannot r/o ischemic heart disease as cause also. Will need stress test with cardiology to start furt her testing. TSH wnl. ECG unchanged this hospital stay. Please see above. 3. Ascending abdominal aortic aneurysm (AAA). 5. [address] angio above. RF: HTN, obesity, smoker. Will need vascular referral as o/p, good BP control. 4. HTN. LVH on echo per cards. Keep lisinopril 10 mg Po daily. 5. Hypochromic microcytic anemia. Iron wnl. May benefit from daily iron anyway, as iron level is low normal. F/u with PCP to monitor closely. 6. HLD. C/w statin. 7. GERD. PPI. DISPOSITION: Discharge today with f/u with PCP and cardiology (already scheduled). Spoke with Dr. Cruz on 02/05/20 to updated and will discuss stress test, vascular referral with patient further when he sees him. TIME SPENT ON DISCHARGE: 25 minutes. Vital Signs/I&Os Vital Signs Date Time Temp Pulse Resp B/P (MAP) Pulse Ox O2 Delivery O2 Flow Rate FiO2 02/06/20 09:18 127/84 02/06/20 06:00 98.2 71 16 94 Room Air I&O- Last 24 Hours up to 6 AM 02/06/20 05:59 Intake Total 1950 ml Balance 1950 ml Laboratory Data Labs 24H Laboratory Tests 2 02/05/20 15:50: Troponin I < 0.02 02/06/20 06:04: Nucleated Red Blood Cells % (auto) 0.0, Anion Gap 5L, Glomerular Filtration Rate > 60.0, Calcium Level 9.1, Total Bilirubin 0.7, Aspartate Amino Transf (AST/SGOT) 21, Alanine Aminotransferase (ALT/SGPT) 45, Alkaline Phosphatase 70, Total Protein 6.8, Albumin 3.8, Albumin/Globulin Ratio 1.27 CBC/BMP Laboratory Tests 02/06/20 06:04 Discharge Medications Scheduled Atorvastatin Calcium (Atorvastatin Calcium) 20 Mg Tab, 20 MG PO DAILY, (Reported) Lisinopril (Lisinopril) 10 Mg Tablet, 10 MG PO DAILY Omeprazole (Omeprazole) 20 Mg Cap, 20 MG PO DAILY, (Reported) Allergies Coded Allergies: No Known Allergies (Unverified , 06/23/18) Zaina Mars MD Feb 06, 2020 11:20
--- NOTE | 2020-02-06 13:10 | ECGEPIP ---
[facility] Test Date: 2020-02-05 Pat Name: LYDIA CHOWDARY Department: Room: [place] [address] Gender: Male Access Rn: ENRIQUE : 1960 Requested By: Zaina Stoner Order Number: [id number] Reading MD: Fred Calero Measurements Intervals [place] Rate: 67 P: 17 DE: 187 QRS: 22 QRSD: 78 T: 14 QT: 358 QTc: 379 Interpretive Statements SINUS RHYTHM ST ELEVATION, PROBABLY EARLY REPOLARIZATION Similar to tracing done 02-04-20 Electronically Signed on 02-06-2020 13:10:01 EDT by Fred Calero
--- NOTE | 2020-02-07 13:32 | NOCOX ---
DATE OF PROCEDURE: 02/04/2020 The total valid sampling time for the study was 7 hours and 3 minutes. The average O2 sat was 95.7% with a low of 89 and high 100%. Heart rate ranged from 47-82 beats per minute. The total time spent with an O2 sat less than 88% was 0 minutes. Graphically the patient did not have significant O2 sat variability overnight. There was one or two episode of brief variability noted. There were significant episodes of heart rate variability noted overnight. IMPRESSION: Likely normal nocturnal oximetry study with no significant episodes of O2 sat variability overnight. The patient does not have any significant desaturation and does not qualify for nocturnal oxygen supplementation. There were significant episodes however of heart rate variability noted overnight. If there is still a strong clinical suspicion for sleep disordered breathing, can refer patient for more formal sleep testing. MARLON
== END 2020-02-06 09:48 | disposition home or self-care (01) | DRG 207 ==
LOC: M ED 16:20 → M ED INP 18:43 → ENRESERV 18:52 → M MSPAV 20:25 → OBSVTOIN 02-04 17:18
PROVIDERS: ADMIT Internal Medicine; ATTEND Internal Medicine
DX: R00.8 Other abnormalities of heart beat (principal); I10 Essential (primary) hypertension; R55 Syncope and collapse; R00.2 Palpitations; K21.9 Gastro-esophageal reflux disease without esophagitis; D50.9 Iron deficiency anemia, unspecified; I47.2 Ventricular tachycardia; I71.4 Abdominal aortic aneurysm, without rupture; E66.9 Obesity, unspecified; G47.33 Obstructive sleep apnea (adult) (pediatric); E78.5 Hyperlipidemia, unspecified; Z68.34 Body mass index [BMI] 34.0-34.9, adult; Z79.899 Other long term (current) drug therapy; Z87.891 Personal history of nicotine dependence

== ENCOUNTER → 2020-03-08 | Outpatient (CLI) | payer BC ==
[~2020-03-08] MED LIST changes: +LISI10TA4 PO
[2020-03-08 12:01] LABS: HEMATOCRIT 33.8 % (42.0-52.0); HEMOGLOBIN 10.4 g/dl (13.5-17.5); MEAN CORPUSCULAR HEMOGLOBIN 22.8 pg (27.0-33.0); MEAN CORPUSCULAR HGB CONC 30.8 g/dl (32.0-36.5); PLATELET COUNT, AUTOMATED 576 10^3/uL (150-450); RED BLOOD COUNT 4.57 10^6/uL (4.30-6.10); WHITE BLOOD COUNT 14.4 10^3/uL (4.0-10.0)
== END ==
LOC: M PLALAB 08:29
PROVIDERS: ATTEND Physician Assistant Surgical
DX: I71.2 Thoracic aortic aneurysm, without rupture (principal)

== ENCOUNTER → 2020-06-02 | Outpatient (CLI) | payer BC ==
--- NOTE | 2020-06-24 14:01 | SLEEPCENT ---
DATE: 06/02/2020 ORDERED BY: Villa Smart INDICATIONS: Nocturnal polysomnography was performed for evaluation of sleep physiology in this patient with history of insomnia and snoring. There was 6 hours and 47 minutes of data reviewed. There was 251.5 minutes of sleep identified. Sleep latency was prolonged at 55 minutes. REM latency was prolonged at 258 minutes. Sleep architecture showed fragmentation and poor progression with periods of wake. There two episodes of REM late in the study. Overall sleep efficiency was 62.6%. The electrocardiogram showed a sinus rhythm with an average heart rate of 50 beats per minute. EEG showed normal waveforms for wake and sleep. There were 96 respiratory events identified of 10 second in duration or greater for an apnea-hypopnea index of 22.9. The events were primarily obstructive, not exclusive to sleep stage nor body posture. Arousals from respiratory events occurred 4.1 times per hour, and oxygen desaturations were seen into the 80s. There was some activity in the limb leads, but trains of events were not seen. Snoring was noted. IMPRESSION: Obstructive sleep apnea syndrome (G47.33). Apnea-hypopnea index 22.9. RECOMMENDATION: The patient should be encouraged to return to the sleep disorder center for pressure therapy. In the interim, alcohol and sedative avoidance should be practiced and caution exercised during the operation of motor vehicles. MTDD
== END ==
LOC: M SLEEP 20:00
PROVIDERS: ATTEND Physician Assistant
DX: G47.33 Obstructive sleep apnea (adult) (pediatric) (principal)

== ENCOUNTER → 2020-08-12 | Outpatient (CLI) | payer BC ==
--- NOTE | 2020-08-16 13:34 | SLEEPCENT ---
NOCTURNAL POLYSOMNOGRAPHY CPAP TITRATION DATE: 08/12/2020 ORDERED BY: DALTON Angeles Nocturnal polysomnography was performed for the titration of pressure therapy in this patient with obstructive sleep apnea syndrome, apnea-hypopnea index 22.9. For testing, a [employer] Simplus full face mask of medium size was used and 4 cm of water pressure were applied to the circuit, and the lights were extinguished. Six hours and 47 minutes of data were reviewed. There were 330.5 minutes of sleep identified. Sleep latency was prolonged at 20 minutes. REM latency was short at 40.5 minutes. Sleep architecture was good with four REM cycles noted. Overall sleep efficiency was 82.8%. The electrocardiogram showed a sinus rhythm with an average heart rate of 50 beats per minute. EEG showed normal waveforms for wake and sleep. Respiratory events were fully palliated with CPAP at a pressure of +9 and remaining measures of sleep physiology were normal. IMPRESSION: Obstructive sleep apnea syndrome (G47.33). RECOMMENDATION: Nightly use of pressure therapy 9 cm of water. MTDD
== END ==
LOC: M SLEEP 20:00
PROVIDERS: ATTEND Physician Assistant
DX: G47.33 Obstructive sleep apnea (adult) (pediatric) (principal)

== ENCOUNTER 2020-12-29 07:26 | Emergency (ER) | payer BC ==
[~2020-12-29] VITALS: Ht 172.7 cm; Wt 97.2 kg
[~2020-12-29 07:26] MED LIST changes: +LISI10TA22 PO; -LISI10TA4 PO
[2020-12-29] MEDS ORDERED: ASPI-255 (07:34)
[2020-12-29] MEDS ORDERED: ATOR40TA75 (07:34)
[2020-12-29] MEDS ORDERED: METO1TAB87 (07:34)
--- NOTE | 2020-12-29 08:12 | REP ---
INDICATION: CHEST PAIN COMPARISON: 02/03/2020 TECHNIQUE: Portable AP view of the chest FINDINGS: Mediastinum and cardiac silhouette are relatively normal/stable. Relatively recent sternotomy noted on current examination. The lung garland are relatively clear and without obvious focal consolidation, effusion, or pneumothorax. Skeletal structures intact. IMPRESSION: No acute cardiopulmonary process appreciated. <Electronically signed by Didier Philip > 12/29/20 0809
--- NOTE | 2020-12-29 08:12 | REP ---
INDICATION: dizzy COMPARISON: None. TECHNIQUE: Axial noncontrast images from the skull base to the vertex with coronal reformations. This CT examination was performed using the following dose reduction techniques: Automated exposure control, adjustment of mA and/or kv according to the patient's size, and use of iterative reconstruction technique. FINDINGS: The ventricles, sulci, and cisterns are normal in position and appearance. Callaway-white differentiation is maintained. No acute intracranial hemorrhage, mass/mass effect, pathology or trauma/injury. No evidence for acute infarction. No extra-axial fluid collection. Calvarium is intact. Paranasal sinuses and mastoid air cells are clear. IMPRESSION: Normal noncontrast head CT. No evidence for acute intracranial pathology or trauma/injury. <Electronically signed by Didier Philip > 12/29/20 0815
[2020-12-29 08:36] LABS: BASO % 0.5 % (0.0-1.0); EOS % 0.4 % (0.0-3.0); HEMATOCRIT 46.1 % (42.0-52.0); HEMOGLOBIN 14.3 g/dl (13.5-17.5); LYMPH # 1.8 10^3/uL (1.5-5.0); LYMPH % 22.8 % (24.0-44.0); MEAN CORPUSCULAR HEMOGLOBIN 21.5 pg (27.0-33.0); MEAN CORPUSCULAR VOLUME 69.4 fl (80.0-96.0); MONO # 0.4 10^3/uL (0.0-0.8); MONO % 4.5 % (2.0-8.0); NEUTROPHILS # 5.8 10^3/uL (1.5-8.5); NEUTROPHILS % 71.4 % (36.0-66.0); PLATELET COUNT, AUTOMATED 194 10^3/uL (150-450); RED BLOOD COUNT 6.64 10^6/uL (4.30-6.10); WHITE BLOOD COUNT 8.1 10^3/uL (4.0-10.0)
[2020-12-29 09:13] LABS: ALBUMIN 4.4 GM/DL (3.2-5.2); ALT/SGPT 36 U/L (12-78); BILIRUBIN,DIRECT 0.3 MG/DL (0.0-0.2); BILIRUBIN,TOTAL 0.8 MG/DL (0.2-1.0); LIPASE 112 U/L (73-393); NT-PRO BNP 46 PG/ML (<125); THYROID STIMULATING HORMONE 0.644 uIU/ML (0.358-3.740); TOTAL PROTEIN 7.3 GM/DL (6.4-8.2)
[2020-12-29 09:19] LABS: INR 1.06; PROTHROMBIN TIME 14.1 SECONDS (12.5-14.3)
[2020-12-29 09:31] LABS: BLOOD UREA NITROGEN 17 MG/DL (7-18); CALCIUM LEVEL 9.3 MG/DL (8.8-10.2); CARBON DIOXIDE LEVEL 26 MEQ/L (21-32); CHLORIDE LEVEL 109 MEQ/L (98-107); GLOMERULAR FILTRATION RATE > 60.0 (>49); GLUCOSE, FASTING 105 MG/DL (70-100); POTASSIUM SERUM 4.4 MEQ/L (3.5-5.1); SODIUM LEVEL 141 MEQ/L (136-145)
[2020-12-29 11:38] VITALS: BP 113/76
--- NOTE | 2020-12-30 07:30 | ECGEPIP ---
[facility] - ED Test Date: 2020-12-29 Pat Name: LYDIA CHOWDARY Department: Room: - Gender: Male Gastroenterology Physician: : 1960 Requested By: Anna Mcghee Order Number: [id number] Reading MD: Fred Calero Measurements Intervals [place] Rate: 53 P: -3 IN: 180 QRS: 11 QRSD: 92 T: 9 QT: 426 QTc: 399 Interpretive Statements Sinus bradycardia Electronically Signed on 12-30-2020 7:30:42 EDT by Fred Calero
== END 2020-12-29 11:43 | disposition home or self-care (01) ==
LOC: M ED 07:26
DX: R00.2 Palpitations (principal); I10 Essential (primary) hypertension; Z79.82 Long term (current) use of aspirin; Z87.891 Personal history of nicotine dependence; Z95.1 Presence of aortocoronary bypass graft

== ENCOUNTER → 2022-02-20 | Outpatient (REF) | payer BC ==
[~2022-02-20] MED LIST changes: +ASPI-255; +ATOR40TA75; +METO1TAB87; +MOLN200C PO
== END ==
LOC: M LAB REF 17:05
PROVIDERS: ATTEND Internal Medicine
DX: R31.0 Gross hematuria (principal)

== ENCOUNTER → 2022-03-01 | Outpatient (REF) | payer BC | LOC: M LAB REF 16:16 | PROVIDERS: ATTEND Internal Medicine | DX: R31.0 Gross hematuria (principal) ==

== ENCOUNTER → 2022-03-09 | Outpatient (REF) | payer BC | LOC: M LAB REF 16:14 | PROVIDERS: ATTEND Internal Medicine | DX: R31.0 Gross hematuria (principal) ==

== ENCOUNTER → 2022-03-14 | Outpatient (CLI) | payer BC | LOC: M PLAIMG 09:51 | PROVIDERS: ATTEND Internal Medicine | DX: R31.0 Gross hematuria (principal) ==

== ENCOUNTER → 2022-05-27 | Outpatient (CLI) | payer BC ==
[~2022-05-27] MED LIST changes: +ATOR80TA59 PO; +CARV6.25 PO; +ECOT81TA5 PO; +MULT-90 PO; +VITA100093 PO
== END ==
LOC: M LABSMTC 11:41
PROVIDERS: ATTEND Anesthesiology
DX: Z01.812 Encounter for preprocedural laboratory examination (principal)

== ENCOUNTER 2022-05-30 11:50 | Day surgery (SDC) | payer BC ==
[~2022-05-30] VITALS: Ht 172.7 cm; Wt 103.8 kg
[~2022-05-30 11:50] MED LIST changes: +NS 1,000 ML IV ONE
[2022-05-30] MEDS ORDERED: propofoL 200 MG/20 ML VIAL As Ordered ONE (12:11)
[2022-05-30] MEDS ORDERED: fentaNYL 100 MCG/2 ML INJECTION As Ordered ONE (12:11)
[2022-05-30] MEDS ORDERED: LIDOCAINE 2% 100MG/5ML SDV (FOR ANES.) As Ordered ONE (12:11)
[2022-05-30 14:37] VITALS: BP 128/72
== END 2022-05-30 14:42 | disposition home or self-care (01) ==
LOC: M OPP 11:50
PROVIDERS: ATTEND Internal Medicine Gastroenterology
DX: Z12.11 Encounter for screening for malignant neoplasm of colon (principal); Z86.010 Personal history of colon polyps; K64.0 First degree hemorrhoids; K22.89 Other specified disease of esophagus; K44.9 Diaphragmatic hernia without obstruction or gangrene; K31.89 Other diseases of stomach and duodenum; K21.00 Gastro-esophageal reflux disease with esophagitis, without bleeding; F41.9 Anxiety disorder, unspecified; I10 Essential (primary) hypertension; E78.00 Pure hypercholesterolemia, unspecified; G47.33 Obstructive sleep apnea (adult) (pediatric); G43.909 Migraine, unspecified, not intractable, without status migrainosus; Z79.02 Long term (current) use of antithrombotics/antiplatelets; Z79.82 Long term (current) use of aspirin; Z79.899 Other long term (current) drug therapy; Z80.0 Family history of malignant neoplasm of digestive organs; Z80.1 Family history of malignant neoplasm of trachea, bronchus and lung; Z87.891 Personal history of nicotine dependence
CPT/HCPCS: 43239; 45378; 88305; J3010

== ENCOUNTER → 2023-09-09 | Outpatient (REF) | payer BC ==
[~2023-09-09] MED LIST changes: -NS 1,000 ML IV ONE
[2023-09-09 19:04] LABS: FOLATE > 24.0 NG/ML (>5.4); VITAMIN B12 LEVEL 588 PG/ML (211-911)
== END ==
LOC: M LAB REF 16:10
PROVIDERS: ATTEND Internal Medicine
DX: R20.2 Paresthesia of skin (principal)

== ENCOUNTER → 2024-02-25 | Outpatient (CLI) | payer MEDICARE | LOC: M PLAIMG 10:24 | PROVIDERS: ATTEND Nurse Practitioner Family | DX: I25.10 Atherosclerotic heart disease of native coronary artery without angina pectoris (principal) ==

== ENCOUNTER 2024-03-15 11:39 | Emergency (ER) | payer MEDICARE ==
[~2024-03-15] VITALS: Ht 172.7 cm; Wt 109.0 kg
[2024-03-15 11:39] VITALS: BP 144/86; TEMP 97.3; O2SAT 97
[2024-03-15] MEDS: BOOSTRIX VACCINE (TETANUS/DIPHTH/ACEL. PERTUSSIS) 0.5ML SYR IM ONE (12:35)
[2024-03-15] MEDS ORDERED: AMOX875T2 PO (14:42)
[2024-03-15] MEDS ORDERED: MUPI2OI TOP (14:43)
== END 2024-03-15 14:55 | disposition home or self-care (01) ==
LOC: M ED 11:39
DX: S61.211A Laceration without foreign body of left index finger without damage to nail, initial encounter (principal); W31.2XXA Contact with powered woodworking and forming machines, initial encounter; I10 Essential (primary) hypertension; E78.5 Hyperlipidemia, unspecified; K21.9 Gastro-esophageal reflux disease without esophagitis; F41.9 Anxiety disorder, unspecified; G47.33 Obstructive sleep apnea (adult) (pediatric); Z86.79 Personal history of other diseases of the circulatory system; Y92.009 Unspecified place in unspecified non-institutional (private) residence as the place of occurrence of the external cause; Y93.89 Activity, other specified; Y99.9 Unspecified external cause status; Z79.2 Long term (current) use of antibiotics; Z79.82 Long term (current) use of aspirin; Z79.02 Long term (current) use of antithrombotics/antiplatelets; Z79.899 Other long term (current) drug therapy; Z23 Encounter for immunization

== ENCOUNTER → 2024-04-01 | Outpatient (CLI) | payer MEDICARE ==
[~2024-04-01] MED LIST changes: +AMOX875T2 PO; +MUPI2OI TOP
== END ==
LOC: M RAD 07:28
PROVIDERS: ATTEND Internal Medicine
DX: J18.9 Pneumonia, unspecified organism (principal)

== ENCOUNTER → 2024-09-03 | Outpatient (CLI) | payer MEDICARE | LOC: M RAD 08:09 | PROVIDERS: ATTEND Thoracic Surgery (Cardiothoracic Vascular Surgery) | DX: I71.20 Thoracic aortic aneurysm, without rupture, unspecified (principal) ==

== ENCOUNTER 2024-09-13 21:28 | Emergency (ER) | payer MEDICARE ==
[~2024-09-13] VITALS: Ht 172.7 cm; Wt 110.8 kg
[2024-09-13 23:23] VITALS: BP 146/89; TEMP 97.1; O2SAT 94
[2024-09-13] MEDS ORDERED: METH-1164 PO (23:29)
[2024-09-13] MEDS ORDERED: MEDR4PAK PO (23:29)
[2024-09-13] MEDS ORDERED: IBUP-1022 PO (23:29)
== END 2024-09-13 23:48 | disposition home or self-care (01) ==
LOC: M ED 21:28
DX: M54.31 Sciatica, right side (principal); I10 Essential (primary) hypertension; E78.5 Hyperlipidemia, unspecified; K21.9 Gastro-esophageal reflux disease without esophagitis; F10.10 Alcohol abuse, uncomplicated; Z79.2 Long term (current) use of antibiotics; Z79.1 Long term (current) use of non-steroidal anti-inflammatories (NSAID); Z79.810 Long term (current) use of selective estrogen receptor modulators (SERMs); Z79.899 Other long term (current) drug therapy

== ENCOUNTER → 2024-12-31 | Outpatient (CLI) | payer MEDICARE ==
[~2024-12-31] MED LIST changes: +IBUP-1022 PO; +MEDR4PAK PO; +METH-1164 PO
== END ==
LOC: M WUC 08:58
PROVIDERS: ATTEND Nurse Practitioner Family
DX: R05.9 Cough, unspecified (principal)

== ENCOUNTER → 2025-05-03 | Outpatient (CLI) | payer MEDICARE | LOC: M LAB 09:44 | PROVIDERS: ATTEND Physician Assistant | DX: N40.1 Benign prostatic hyperplasia with lower urinary tract symptoms (principal); Z12.5 Encounter for screening for malignant neoplasm of prostate | CPT/HCPCS: 36415; G0103 ==